=== PATIENT | female | born 1950 | race Caucasian/White ===

== ENCOUNTER 2023-10-01 23:03 | Inpatient (IN) | payer MEDICARE, OTHER, SELFPAY ==
[2023-10-01] VITALS (7 sets, daily range): BP systolic 117–166; BP diastolic 59–89; BMI 26.0; BMI 25.0
[2023-10-01 14:30] LABS: % Basophils 1.1 % (0-2); % Eosinophils 0.9 % (0-6); % Immature Granulocytes 1.9 % (0-0.5); % Lymphocytes 13.3 % (20.5-51.1); % Monocytes 9.1 % (1.7-9.3); % Neutrophils 73.7 % (42.2-75.2); Absolute Basophils 0.1 10^3/uL (0-0.2); Absolute Eosinophils 0.1 10^3/uL (0-0.7); Absolute Immature Granulocytes 0.1 10^3/uL (0-0.05); Absolute Monocytes 0.7 10^3/uL (0.1-0.6); Absolute Neutrophils 5.4 10^3/uL (1.4-6.5); Hematocrit 33.9 % (37.0-47.0); Hemoglobin 11.5 g/dL (12.0-16.0); Mean Corp Hgb Conc. 33.9 g/dL (33.0-37.0); Mean Corpuscular Hgb 34.1 pg (27.0-31.0); Mean Corpuscular Volume 100.6 fL (81.0-99.0); Mean Platelet Volume 8.6 fL (7.4-10.4); Nucleated Red Blood Cells % 0 %; Platelet Count 220 10^3/uL (130-400); Red Blood Cell Count 3.37 10^6/uL (4.20-5.40); White Blood Cell Count 7.4 10^3/uL (4.8-10.8)
[2023-10-01 14:46] LABS: ALT (SGPT) 22 U/L (0-35); AST (SGOT) 28 U/L (14-36); Albumin 3.7 g/dl (3.5-5.0); Alkaline Phosphatase 63 U/L (38-126); Blood Urea Nitrogen 9 mg/dl (7-17); Calcium 8.8 mg/dl (8.4-10.2); Carbon Dioxide 31 mmol/L (22-30); Chloride 90 mmol/L (98-107); Glucose 118 mg/dl (70-99); Potassium 4.2 mmol/L (3.5-5.1); Sodium 129 mmol/L (135-145); Total Protein 6.9 g/dl (6.3-8.2); eGFR > 60.00
--- NOTE | 2023-10-01 17:30 | ED.GENMED ---
History of Present Illness
General
Chief Complaint: Weakness
Time Seen by Provider: 10/01/23 16:44
Travel History
Have you had any contact with someone who has COVID-19?: No
Do you have any symptoms of coronavirus? Fever > 100 degrees, chills, cough, shortness of breath, sore throat, loss of taste or smell, muscle aches, or headache?: No
History of Present Illness
History of Present Illness:
73-year-old female history of hypertension presenting with productive cough for the past 1 week. 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 Patient states that her had similar symptoms. Patient
denies chest pain, shortness of breath, fever, chills, or lower extremity swelling. states that patient has been more confused over the past few days as she will sometimes be sitting in her wheelchair staring off at cabinets or referring to
dog that years ago. Patient denies any recent falls, head trauma, or use of blood thinners. Of note patient is wheelchair-bound secondary to previous left femur fracture.
Past History
Past History
ED Past Medical History: None
ED Past Surgical History: Orthopedic
Social History
Tobacco: Non-smoker
Alcohol: None
Phy Exam
Physical Exam
Physical Exam:
General: Alert, no acute distress
Head: NCAT, PERRLA, EOMI
Eyes: clear conjunctiva
Neck: supple
Cardiac: regular rate and rhythm, no murmur
Lungs: clear to auscultation bilaterally. No wheezes, rales, or rhonchi. Speaking full unlabored sentences. No respiratory distress.
Abdomen: soft, nondistended nontender. No rebound or guarding.
MSK: no lower extremity edema bilaterally. No deformity
Skin: warm, dry
Neuro: Alert and oriented x3. no focal deficits
Course
Orders/Labs/Results
Orders:
Orders
10/01/23 14:14
Electrocardiogram (*1) Urgent
Reason for Study: Fatigue / Weakness
EKG- Treatment ONCE
10/01/23 14:21
Complete Blood Count/With Diff Urgent
Comprehensive Metabolic Panel Urgent
10/01/23 17:29
CXR2 [CR Chest - 2 Views ] Urgent
Comment:
Reason For Exam: cough
10/01/23 17:30
EKG [Electrocardiogram (*1)] Urgent
Reason for Study: Hypertension, Benign
EKG- Treatment ONCE
10/01/23 18:29
CT Head W/o Iv Contrast Urgent
Comment:
Reason For Exam: headache, left sided tingling
10/01/23 18:30
Prochlorperazine [Compazine] 10 mg IV NOW STA
10/01/23 19:19
CT Chest Pe Study Urgent
Comment:
Reason For Exam: hypoxia, wheelchair bound, r/o pe
10/01/23 19:45
UA Reflex to Culture [Urinalysis Reflex To Culture] Urgent
Date Specimen was Collected: 10/01/23
Time Specimen was Collected: 19:44
Urine Microscopic Reflex Cult Urgent
10/01/23 21:35
Azithromycin 500 mg/250 ml [Zithromax Infusion] 500 mg in 250 ml IV NOW
CefTRIAXone [Rocephin] 1,000 mg IV NOW STA
Abnormal Lab Results
10/01/23 10/01/23
14:21 19:45
RBC 3.37 L 10^6/uL
(4.20-5.40)
Hgb 11.5 L g/dL
(12.0-16.0)
Hct 33.9 L %
(37.0-47.0)
MCV 100.6 H fL
(81.0-99.0)
MCH 34.1 H pg
(27.0-31.0)
Abs Immat Gran (auto) 0.1 H 10^3/uL
(0-0.05)
Absolute Lymphs (auto) 1.0 L 10^3/uL
(1.2-3.4)
Absolute Monos (auto) 0.7 H 10^3/uL
(0.1-0.6)
Immature Gran % 1.9 H %
(0-0.5)
Lymphocytes % 13.3 L %
(20.5-51.1)
Sodium 129 L mmol/L
(135-145)
Chloride 90 L mmol/L
(98-107)
Carbon Dioxide 31 H mmol/L
(22-30)
Creatinine 0.4 L mg/dL
(0.6-1.0)
Glucose 118 H mg/dl
(70-99)
Urine Ketones 2+ A
(Negative)
Urine Bilirubin 2+ A
(Negative)
Urine Urobilinogen 4+ A
(Neg - 1+)
Leukocyte Esterase Rfl Trace A
(Negative)
Urine Bacteria (Reflex) Few A
(Negative)
10/01/23 14:21
10/01/23 14:21
Vital Signs
Initial and Last Documented VS:
Initial Vital Signs
Temp Pulse Resp BP Pulse Ox
98.4 F 92 16 121/76 98
10/01/23 14:10 10/01/23 14:10 10/01/23 14:10 10/01/23 14:10 10/01/23 14:10
Last Documented Vital Signs
Temp Pulse Resp BP Pulse Ox
98.4 F 94 18 160/79 99
10/01/23 14:10 10/01/23 19:46 10/01/23 19:46 10/01/23 19:07 10/01/23 20:30
MDM/Problems Addressed
MDM/Problems Addressed:
Patient presents to the Emergency Department with cough
Number and Complexity of Problems Addressed at the Encounter
� Chronic conditions affecting care:
� Acute Exacerbation and/or Progression of Chronic Illness:
� Differential Diagnosis includes: Viral syndrome, pneumonia, UTI, electrolyte abnormality
Amount and/or Complexity of Data to be Reviewed and Analyzed
� I performed an independent evaluation of and my interpretation is:
EKG: EKG shows NSR at 74bpm with MS 150 QTc 450 no acute ischemic changes
CT: CTA shows opacity right side, no PE.
Xrays: CXR shows no acute consolidation or infiltrate.
Laboratory Studies:
Other:
� Review of other/old records reveals:
� Clinical information was obtained by an independent historian:
� Prescriptions/Medications Considered but not given:
� Further testing considered but not performed:
Risk of Complications and/or Morbidity or Mortality of Patient Management
� Social Determinants of health affecting care:
� Discussion with other providers (PCP, Hospitalists, Consultants, etc):
� Escalation of care including admission/observation vs risk of discharge considered: 73yoF hx hypertension, wheelchair-bound presenting with productive cough for the past 1 week. is also concern for altered mental status. Negative COVID at
home. Patient alert and oriented x 3 here in ER. Patient hypoxic to 84% on room air, improved with [address] head negative. Chest x-ray negative for acute infiltrate/consolidation. Given hypoxia and history of being wheelchair-bound,
ordered CTA chest rule out PE, further assess for pneumonia. CT reviewed, no acute PE but does show opacities concerning for pneumonia. Ordered ceftriaxone/azithromycin for community-acquired pneumonia. Discussed with hospitalist
*Critical Care Note
Total Time (30-74mins, 75-104mins- exclusive of procedures): Not Applicable
ED Attending Note
-
Portions of this chart may have been created with voice recognition software.� Occasional wrong word or��sound alike� substitutions may have occurred due to the inherent limitations of voice recognition software.
Discharge Plan
Departure
Patient Disposition: Admit
Date of Disposition: 10/01/23
Time of Disposition: 21:47
Admit to: Telemetry
Presentation/result/management discussed w/ accepting MD/DO: Hospitalist
Patient with high blood pressure during this ER visit?: Yes
Discharge Problem:
Community acquired pneumonia
Prescriptions:
No Action
ibuprofen 200 mg Tablet
400 mg PO Q6H PRN (Reason: mild pain)
Guaifenesin DM 30-600 mg Tablet Extended Release 12 Hr
2 tab PO Q12H PRN (Reason: cough/congestion)
Benefiber
2 tsp PO DAILY
Culturelle
1 cap PO DAILY
Referrals:
Vu Johnson MD [Family Provider] -
Interventions
Interventions:
*Risk Screen - Suicide Last Done: 10/01/23 16:13
*General Assessment Last Done: 10/01/23 16:13
*Neglect/Abuse Screening Last Done: 10/01/23 16:03
ED- Fall Risk Assessment Last Done: 10/01/23 16:13
*ED COVID-19 Vaccine History Last Done: 10/01/23 14:10
ED- Cardiac Assessment Last Done: 10/01/23 16:13
ED- Neurological Assessment Last Done: 10/01/23 16:13
ED- Pulmonary Assessment Last Done: 10/01/23 16:13
Discharge Date and Time
Print Language: KAZAKH
[2023-10-01] MEDS: COMPAZINE 10 MG IV (19:14)
[2023-10-01 19:57] LABS: Urine Albumin Trace (Neg - Trace); Urine Bilirubin 2+ (Negative); Urine Character Clear (Clear); Urine Color Yellow; Urine Glucose Negative (Negative); Urine Ketone 2+ (Negative); Urine Leukocyte Trace (Negative); Urine Nitrite Negative (Negative); Urine Occult Blood Negative (Negative); Urine Urobilinogen 4+ (Neg - 1+)
[2023-10-01 20:11] LABS: Urine Bacteria Few (Negative); Urine Mucus Many; Urine Red Blood Cell 0-2 /HPF (0-2); Urine White Cell 0-2 /HPF (0-5)
--- NOTE | 2023-10-01 21:42 | HPS.HSE ---
Addendum entered and electronically signed by Jovan Perry MD 10/01/23 22:45:
see my update note for addendum
Original Note:
Family Physician
-
Family Physician: Vu Johnson
Chief Complaint
-
cough
History of Present Illness
73 year old with PMH for HTN presented to us with productive cough with green sputum for one week. denied chest pain, sob. stated sore throat resolved. denied fever, chills, [place], dizzy or syncopal episode. denied abdominal pain, n,v,d.denied dysuria
or hematuria. patient was hallucinating and was confused at home.
patient was hypoxic on arrival. CT with pneumonia. received ceftriaxone and zithro in ER. admitting for further management.
Medical History
Past Medical History
Past Medical History: Reports Other
Additional Past Medical History:
htn
Past Surgical History: Reports Other
Additional Past Surgical History:
ORIF
-tib fib surgical repair
tubal ligation
appendectomy
b/l cataract surgery
Social History
Tobacco: Non-smoker
Alcohol: Daily (4 glasses of wine)
Drug: None
Personal:
Living: With Family
Family History
Family History: Not pertinent
Allergies / Home Medications
Allergies reflects when Allergies were last updated in [facility].
Home Medications with original date entered in [facility]
Allergy/Medication List:
Allergies
Allergy/AdvReac Type Severity Reaction Status Date / Time
No Known Allergies Allergy Verified 10/01/23 14:13
Home Medications
Benefiber 2 tsp PO DAILY 10/01/23
Culturelle 1 cap PO DAILY 10/01/23
dextromethorphan-guaifenesin 30 mg-600 mg tablet extended [id number] hr 2 tab PO Q12H PRN cough/congestion 10/01/23
ibuprofen 200 mg tablet 400 mg PO Q6H PRN mild pain 10/01/23
Review of Systems
-
Constitutional: Reports No Symptoms
EENT: Reports No Symptoms
Respiratory: Reports Cough
Cardiac: Reports No Symptoms
Abdomen/GI: Reports No Symptoms
: Reports No Symptoms
Musculoskeletal: Reports No Symptoms
Skin: Reports No Symptoms
Neurological: Reports No Symptoms
Endocrine: Reports No Symptoms
Hematologic/Lymphatic: Reports No Symptoms
Psych: Reports No Symptoms
Physical Exam
Vital Signs
Vital Signs
Temp Pulse Resp BP Pulse Ox
98.4 F 94 18 160/79 94
10/01/23 14:10 10/01/23 19:46 10/01/23 19:46 10/01/23 19:07 10/01/23 19:46
Physical Exam
General: Well Developed, Well Nourished and No Apparent Distress
HEENT: NormoCephalic, Moist mucous membranes and Atraumatic
Respiratory: Clear
Cardiac: S1/S2 and Regular Rhythm; No Murmur or Rub
GI: Soft, Non Tender, Non Distended and Normal Bowel Sounds; No Organomegaly
Rectal: Deferred by Provider
Musculoskeletal: No Clubbing, No Cyanosis and No Edema
Skin: No Rash
Neuro: AO x 3 and Nonfocal/grossly intact
Psych: Calm
Laboratory Results
-
10/01/23 14:21
10/01/23 14:21
Laboratory Results
Total Bilirubin 1.0 mg/dl (0.2-1.3) 10/01/23 14:21
AST 28 U/L (14-36) 10/01/23 14:21
ALT 22 U/L (0-35) 10/01/23 14:21
Alkaline Phosphatase 63 U/L (38-126) 10/01/23 14:21
Data Reviewed
-
Diagnostic Radiology: Report Reviewed by me
CT Scan: Report Reviewed by me
Lab Data: Labs Reviewed by me
Impression/Plan
-
#productive cough/acute hypoxic respiratory failure likely from pneumonia
-CT chest No evidence of pulmonary embolism.Scattered bilateral groundglass densities most in keeping with infectious/inflammatory etiologies.Right upper lobe solid subpleural nodules measuring up to 1.0 cm, favored on the basis of
infectious/inflammatory nodules although underlying neoplasm not excluded. Recommend follow-up noncontrast CT chest in 2-3 months.
-iv ceftriaxone and Zithromax continued
-chest x ray with Mild diffuse interstitial prominence may reflect pneumonitis and/or borderline interstitial edema. Cannot rule out component of underlying chronic interstitial lung disease.
-continue supplemental oxygen to keep sat>92
-wean as tolerated
-nebs prn for sob
#metabolic encephalopathy likely from acute hypoxia
-CT head negative
-at present mentation stable
-ctm
#hyponatremia likely hypovolemic
-na 129
-fluids continued
-obtain urine osm, serum osm, urine sodium
-BMP in am
#alcohol dependence
-4 glasses of wine daily
-alcohol protocol
-monitor MSAS score
#DVT prophylaxis
-Lovenox
#CODE status
-full code
[2023-10-01] MEDS: ROCEPHIN 1000 MG IV (22:17)
[2023-10-01] MEDS: ZITHROMAX INFUSION 250 IV (22:22)
[2023-10-01 22:38] LABS: Osmolality Serum 289 mOsm/kg (275-300)
--- NOTE | 2023-10-01 22:45 | W.PN.UPDATE ---
Update Note
Progress Note Update
I saw and examined the patient.
The GREEN BUILDING MATERIALS DESIGNER French's note was reviewed and I agree with the note.
Comment: 73 y/o F presenting to ER For productive cough with green sputum, SOB. She had a sore throat which has since resolved. No CP, no fever/chills. She is wheelchair bound due to previous L femur fracture. Family noted she was a bit confused
over past few days and staring off while sitting in wheelchair. 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
In ER, patient requiring 4L NC. CT showed bilateral GGOs - COVID pending. CAP Antibiotics started. CT head is negative and patient is back to baseline per .
Plan: continue O2 and wean as able. COVID neg. continue CAP treatment (Rocephin, Azithromycin). appears dry, give IVF and follow Na levels. Hyponatremia workup sent. add MSAS protocol due to drinking 4 glasses wine nightly.
Physical Exam
General: Well Developed, Well Nourished and No Apparent Distress
HEENT: NormoCephalic, Moist mucous membranes and Atraumatic
Respiratory: faint rhonchi
Cardiac: S1/S2 and Regular Rhythm; No Murmur or Rub
GI: Soft, Non Tender, Non Distended and Normal Bowel Sounds; No Organomegaly
Rectal: Deferred by Provider
Musculoskeletal: No Clubbing, No Cyanosis and No Edema
Skin: No Rash
Neuro: AO x 3 and Nonfocal/grossly intact
Psych: Calm
[2023-10-01 22:47] LABS: COVID-19 Antigen Negative (Negative)
[2023-10-01 23:12] LABS: Osmolality Urine 565 mOsm/kg (300-900)
[2023-10-01 23:17] LABS: Urine Sodium 19 mmol/L (30-90)
[2023-10-02] VITALS (8 sets, daily range): BP systolic 125–158; BP diastolic 56–78; PULSE 83
[2023-10-02 01:52] LABS: INR 1.12; PT 14.2 Sec (11.4-14.6)
[2023-10-02 01:53] LABS: APTT 29.9 Sec (23.4-35.0); GGTP 67 U/L (12-43); Magnesium 1.9 mg/dl (1.6-2.3); Phosphorus 3.3 mg/dl (2.5-4.5)
[2023-10-02 01:54] LABS: Urine Albumin Trace (Neg - Trace); Urine Bilirubin 1+ (Negative); Urine Character Slightly Cloudy (Clear); Urine Glucose Negative (Negative); Urine Ketone 2+ (Negative); Urine Leukocyte 2+ (Negative); Urine Nitrite Negative (Negative); Urine Occult Blood Negative (Negative); Urine Urobilinogen 4+ (Neg - 1+)
[2023-10-02 01:56] LABS: Urine Color Amber
[2023-10-02 02:01] LABS: Alcohol None Detected
[2023-10-02 02:03] LABS: Urine Bacteria Moderate (Negative); Urine Squamous Cell >30 /LPF (Few)
[2023-10-02 02:05] LABS: Amphetamines Negative (Negative); Barbiturates Negative (Negative); Benzodiazepines Negative (Negative); Buprenorphine Negative (Negative); Cocaine Negative (Negative); Marijuana Negative (Negative); Methadone Negative (Negative); Methamphetamines Negative (Negative); Opiates Negative (Negative); Phencyclidine Negative (Negative); Tricyclic Antidepressants Negative (Negative)
[2023-10-02] MEDS: NSS 1000 IV (02:09)
[2023-10-02 06:14] LABS: Hematocrit 33.3 % (37.0-47.0); Hemoglobin 11.2 g/dL (12.0-16.0); Mean Corp Hgb Conc. 33.6 g/dL (33.0-37.0); Mean Corpuscular Volume 101.2 fL (81.0-99.0); Mean Platelet Volume 8.6 fL (7.4-10.4); Platelet Count 203 10^3/uL (130-400); Red Blood Cell Count 3.29 10^6/uL (4.20-5.40); Red Cell Dist. Width 13.7 % (11.5-14.5)
[2023-10-02 06:35] LABS: Blood Urea Nitrogen 7 mg/dl (7-17); Calcium 8.7 mg/dl (8.4-10.2); Carbon Dioxide 31 mmol/L (22-30); Chloride 93 mmol/L (98-107); Estimated Creatinine Clearance 81 ml/min; Glucose 105 mg/dl (70-99); Potassium 3.9 mmol/L (3.5-5.1); Sodium 132 mmol/L (135-145); eGFR > 60.00
[2023-10-02 06:54] LABS: Procalcitonin 0.08 ng/ml (0.0-0.25)
[2023-10-02 07:24] LABS: Hepatitis C Antibody Negative (Negative)
[2023-10-02] MEDS: FOLVITE 1 MG PO (08:17)
[2023-10-02] MEDS: THIAMINE INJECTION 200 MG IV ×2 (08:17→20:26)
--- NOTE | 2023-10-02 09:59 | W.PN.HOSP.TC ---
Addendum entered and electronically signed by Peter Dejesus MD 10/02/23 13:37:
Addendum
Saw pt again with pulmonary doctor, pt remains lethargic and not waking up. Ordered blood gases and seemed to have high PCO2, will do Bipap, move to IMU
Will call
End
Original Note:
Today's Communication/Plan
-
.
Assessment / Plan
Assessment / Plan
Physical Exam
General: She is not in distress. Chronically ill looking.
HEENT: Normocephalic, atraumatic. Bilateral yellowing discharge on both eye lids
Respiratory: no coarse crackles heard
Cardiac: S1/S2 and Regular Rhythm; No Murmur or Rub
GI: Soft, Non Tender, Non Distended and Normal Bowel Sounds.
Rectal: No rectal bleeding
Musculoskeletal: No Clubbing, No Cyanosis and No Edema
Skin: No Rash
Neuro: AO to self and surroundings, followed simple commands.
Psych: Calm
# Change in mental status
She seems back to baseline, could be toxic encephalopathy due to acute illness whether cold like cough/ PNA or UTI
Will check pro-calcitonin. Check Pro-BNP
Check urine culture. No fevers. No leukocytosis.
She seems to have limited functional capacity. Hx of ETOH use but no signs of DT or confusion now. She followed commands. And good memory noted.
Will keep monitoring
# Possible PNA
Hx of cough with sick contact
Negative flu and cOVID
c/w empiric IV Abx for total [address] chest no PE but scattered bilateral ground-glass densities most in keeping with infectious/inflammatory etiologies.
# Hypoxia only/ Hx of smoking tobacco
Right upper lobe solid subpleural nodules measuring up to 1.0 cm, favored on the basis of infectious/inflammatory nodules although underlying neoplasm not excluded.
No SOB, no hemoptysis.
Appreciate pulmonary input
#Hyponatremia
Low normal serum Osmolality
Normal urine osmolality. Low urine sodium
c/w Regular diet and fluid restriction.
# Bilateral conjunctivitis. Will give ciprofloxacin eyedrops and warm wipes to both eyes
# History of alcohol intake. No signs of withdrawal. Continue empiric thiamine dose and monitor.
#DVT prophylaxis. Continue with subcu Lovenox
Total time spent to see the patient, examine the patient on the floor, review data and lab results, discuss treatment plan with patient and nursing staff around 55 minutes
Anticipated Discharge: > 48 hours
Subjective/Interval History
-
Date of Service: October 02, 2023
She feels better
she denies chest pain or sob, reports coming to hospital because ( I was imagining things)
No headache
Objective Data
-
Labs:
Laboratory Results
10/02/23 10/02/23
01:28 05:55
WBC 7.0
Hgb 11.2 L
Hct 33.3 L
Plt Count 203
PT 14.2
INR 1.12
APTT 29.9
Sodium 132 L
Potassium 3.9
Chloride 93 L
Carbon Dioxide 31 H
BUN 7
Creatinine 0.4 L
Glucose 105 H
Calcium 8.7
Vital Signs:
Vital Signs
Temp Pulse Resp BP Pulse Ox
97.9 F 82 17 125/66 97
10/02/23 07:00 10/02/23 07:00 10/02/23 07:00 10/02/23 07:00 10/02/23 07:00
I&O
10/01/23 10/02/23 10/03/23
06:59 06:59 06:59
Intake Total 480 / 480
Balance 480 / 480
[2023-10-02 10:54] LABS: NT-proBNP 1050 pg/ml
[2023-10-02 11:01] LABS: Procalcitonin 0.07 ng/ml (0.0-0.25)
--- NOTE | 2023-10-02 11:15 | CON.PUL ---
Consultation
Consultation Request
Date/Time Consultation Requested: 10/02/23
Date/Time Consultation Performed: 10/02/23
Performing Provider: Miguel Ángel
Reason for Consultation: SOB
Medical History
-
History of Present Illness:
73 year old with PMH for HTN, significant former smoker presented to ER with productive cough with green sputum x 1 week. Denies any associated chest pain, sob. Patient was reportedly hallucinating and was confused at home.
On arrival to ER, patient was hypoxemic 84% on room air. CT with scattered nodular opacities suggesting possible pneumonia. Started on ceftriaxone and azithro IV in ER.
Former smoker >50 pack year history. No PFTs for review, never saw pulmonary in past.
Sleeping on my arrival.
Past Medical History
Past Medical History: Other (see list below)
Social History
Tobacco: Smoker
Alcohol: Daily
Drug: None
Family History
Family History: Reviewed & Not Pertinent
Allergies / Home Medications
Allergies
Allergy/AdvReac Type Severity Reaction Status Date / Time
No Known Allergies Allergy Verified 10/01/23 14:13
Home Medications
�Medication �Instructions �Recorded �Confirmed �Last Taken �Type
Benefiber 2 tsp PO DAILY 10/01/23 10/01/23 10/01/23 History
Culturelle 1 cap PO DAILY 10/01/23 10/01/23 10/01/23 History
dextromethorphan-guaifenesin 30 2 tab PO Q12H PRN cough/congestion 10/01/23 10/01/23 10/01/23 History
mg-600 mg tablet extended
hr
ibuprofen 200 mg tablet 400 mg PO Q6H PRN mild pain 10/01/23 10/01/23 Unknown History
Review of Systems
-
History Source: Patient
All other systems: Negative unless noted
Vitals / Labs / Diagnostic Testing
Vital Signs
Temp Pulse Resp BP Pulse Ox
97.9 F 82 17 125/66 97
10/02/23 07:00 10/02/23 07:00 10/02/23 07:00 10/02/23 07:00 10/02/23 07:00
Lab Data
10/02/23 05:55
10/02/23 05:55
Laboratory Results
10/02/23
01:28
PT 14.2
INR 1.12
APTT 29.9
Microbiology
10/02/23 01:28 Urine Legionella Urinary Antigen - Final
Negative for Legionella pneumophila Serogroup 1 antigen.
A negative result does not rule out the possiblity of
Legionella infection due to other serogroups or species of
Legionella. Clinical correlation is recommended.
10/02/23 01:28 Urine Streptococcus pneumoniae Antigen (M - Final
Negative for Streptococcus pneumoniae antigen.
A negative result does not exclude infection with
Streptococcus pneumoniae. Clinical correlation is
recommended.
10/01/23 22:14 Nasal Swab Influenza Types A & B (MELISSA) - Final
Negative for Influenza A & B, NAAT
Negative results must be combined with clinical observations
and patient history.
Nucleic Acid Amplification test (NAAT)performed on the
[employer] platform.
Diagnostic Testing:
Physical Exam
-
HEENT: Normocephalic, Anicteric and Moist Mucous Membranes
Cardiovascular: S1/S2 and Regular Rhythm
Respiratory: Clear and Non-Labored Respirations
GI: Soft, Non Distended and Non Tender
Neurology: Awake, Alert, Oriented, AO x 3 and No Motor Deficits
Skin: Warm, Dry and Good Color
General: Comfortable and Other (NAD, sleeping heavily)
Assessment
-
73 year old with PMH for HTN, significant former smoker presented to ER with productive cough with green sputum x 1 week. Denies any associated chest pain, sob. Patient was reportedly hallucinating and was confused at home. On arrival to ER,
patient was hypoxemic 84% on room air. CT with scattered nodular opacities suggesting possible pneumonia. Started on ceftriaxone and azithro IV in ER.
Acute hypoxic respiratory failure, O2 amor 84%
Metabolic alkalosis, Rule out hypercarbia
AECOPD suspected
Abnormal CT wtih pulmonary nodules
Hyponatremia, mild
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
Left femur fracture S/P ORIF 2020
Spiral fracture of tib/fib s/p repair 07/2017
Tubal ligation
Appendicitis
B/l cataracts surgery
HLD
Impaired fasting blood sugar
Vitamin D deficiency
Chronic ETOH abuse, 4 glasses of wine daily
Former smoker, 2PPD started age 17, quit age 67 (50-100 pack year history)
Plan
Hypoxemia noted on arrival, O2 amor 84%
Eventual Home o2 eval
Prior history of lung disease is not known but she has extensive smoking history
Suspect patient has underlying AECOPD, will obtain bedside PFT
CXR/CT obtained and reviewed wtih nodular opacities, started on IV abx for CAP
She has risk for lung cancer given her smoking history
Quit at age 67 would still be within screening years
This will need to be followed as OP
Former smoker >50 pack year history.
No PFTs for review, never saw pulmonary in past.
Sleeping on my arrival.
Obtain baseline ABG
No prior ECHO for review
proBNP ~1000
May consider obtaining baseline study
Will need outpatient pulmonary evaluation in our office for PFTs and 6MWT
Reviewed with patient
Risk factors assessed for underlying sleep disordered breathing also noted, recommend outpatient PSG/sleep evaluation
Smoking history noted
Continued smoking cessation recommended
ETOH use noted
On MSAS
We will follow
Diagnostic Data
CT CHEST 10/01/23- 1. No evidence of pulmonary embolism.
2. Scattered bilateral groundglass densities most in keeping with infectious/inflammatory etiologies.
3. Right upper lobe solid subpleural nodules measuring up to 1.0 cm, favored on the basis of infectious/inflammatory nodules although underlying neoplasm not excluded. Recommend follow-up noncontrast CT chest in 2-3 months.
[2023-10-02] MEDS: CILOXAN 0.3% OPHTHALMIC SOLUTION 1 DROP OPHTH ×3 (12:18→22:37)
[2023-10-02 12:46] LABS: B.E. 6.3 mmol/L; O2 Saturation % 98.8 % (94-98); PCO2 57 mmHg (32-35); PO2 75 mmHg (83-108); pH 7.37 (7.35-7.45)
--- NOTE | 2023-10-02 13:09 | CM ---
Addendum entered by ANGELY Pratt 10/02/23 13:31:
Received consult for ETOH resources. Patient denied needing any.
Original Note:
Reviewed chart, met with patient to obtain information for assessment. Patient stated that she lives in a single home with ramp access to enter, no steps. Patient primarily is in a w/c but can use a walker or cane for short distances. She is on o2
in room but denies any at home.
Patient described herself as independent with her ADLs, personal care, dressing and bathing. 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 She described her spouse as supportive and he can also assist with museum educator, and he does
most of the driving.
Patient has had VN services through . She has been to [place]. She has been to a SNF in [place].
Patient has a prescription plan and uses [facility] on [facility] for all of his medications.
His PCP is, Vu Johnson.
Patient stated that she would like to return home when stable. Will watch for o2 needs.
Plan: Case management will continue to follow and assist with discharge planning. Will watch for VN and o2 needs.
[2023-10-02] MEDS: DUONEB 3 ML INH ×2 (16:07→20:33)
[2023-10-02] MEDS: LOVENOX 40 MG SC (17:28)
--- NOTE | 2023-10-02 18:02 | PTCARENOTE ---
Received from [facility]W placed on IMU monitors, SR BP 126/63 POx 96% on 4L NC. MSAS 0 currently but is very anxious. AAOx3. Told me they tried 3 masks upstairs for Bipap. She will try again. Call clark in reach.
[2023-10-02] MEDS: ZITHROMAX 500 MG PO (20:26)
[2023-10-02] MEDS: STERILE WATER FOR INJECTION 10 ML IV (22:36)
[2023-10-02] MEDS: ROCEPHIN 1000 MG IV (22:37)
[2023-10-03] VITALS (18 sets, daily range): BP systolic 117–166; BP diastolic 68–102; PULSE 2–95; O2SAT 93–95; BMI 24.7
--- NOTE | 2023-10-03 03:05 | DOWNTIME ---
There was a [employer] Client Procedures Tech Downtime on 10/02/2023 from 0100 to 10/03/2023 at 0300. Downtime documentation of patient's care, including medication administrations, has been reconciled in the electronic record per guidelines. Refer to the
patient's paper chart under the miscellaneous tab to see printed paper medication records and downtime forms.
[2023-10-03 03:57] LABS: Hematocrit 32.1 % (37.0-47.0); Hemoglobin 11.2 g/dL (12.0-16.0); Mean Corp Hgb Conc. 34.9 g/dL (33.0-37.0); Mean Corpuscular Hgb 33.9 pg (27.0-31.0); Mean Corpuscular Volume 97.3 fL (81.0-99.0); Mean Platelet Volume 8.3 fL (7.4-10.4); Platelet Count 215 10^3/uL (130-400)
[2023-10-03 04:38] LABS: Blood Urea Nitrogen 7 mg/dl (7-17); Carbon Dioxide 29 mmol/L (22-30); Chloride 94 mmol/L (98-107); Estimated Creatinine Clearance 81 ml/min; Glucose 93 mg/dl (70-99); Potassium 4.1 mmol/L (3.5-5.1); Sodium 135 mmol/L (135-145); eGFR > 60.00
--- NOTE | 2023-10-03 06:25 | W.PN.HOSP.TC ---
Today's Communication/Plan
-
.
Assessment / Plan
Assessment / Plan
Physical Exam
General: She is not in distress. Chronically ill looking.
HEENT: Normocephalic, atraumatic. Bilateral yellowing discharge on both eye lids
Respiratory: no coarse crackles heard
Cardiac: S1/S2 and Regular Rhythm; No Murmur or Rub
GI: Soft, Non Tender, Non Distended and Normal Bowel Sounds.
Rectal: No rectal bleeding
Musculoskeletal: No Clubbing, No Cyanosis and No Edema
Skin: No Rash
Neuro: AO to self and surroundings, followed simple commands.
Psych: Calm
# Change in mental status due to toxic encephalopathy
She seems back to baseline, could be toxic encephalopathy due to acute illness whether cold like cough/ PNA or UTI
Will check pro-calcitonin. Check Pro-BNP
Check urine culture. No fevers. No leukocytosis.
She seems to have limited functional capacity. Hx of ETOH use but no signs of DT or confusion now. She followed commands. And good memory noted.
Will keep monitoring
# Acute bronchitis with acute COPD exacerbation
Hx of cough with sick contact
Negative flu and COVID
Mucinex BID
c/w empiric IV Abx for total [address] chest no PE but scattered bilateral ground-glass densities most in keeping with infectious/inflammatory etiologies.
# Acute hypoxic respiratory failure,
Hx of smoking tobacco
Right upper lobe solid subpleural nodules measuring up to 1.0 cm, favored on the basis of infectious/inflammatory nodules although underlying neoplasm not excluded.
No SOB, no hemoptysis.
Wean off O2 today
Appreciate pulmonary input
# Metabolic alkalosis due to high CO2.
#Hyponatremia, resolved.
Low normal serum Osmolality
Normal urine osmolality. Low urine sodium
c/w Regular diet and fluid restriction.
# Bilateral conjunctivitis. c/w ciprofloxacin eyedrops and warm wipes to both eyes
# History of alcohol intake. No signs of withdrawal. Continue empiric thiamine dose and monitor.
#DVT prophylaxis. Continue with subcu Lovenox
Total time spent to see the patient, examine the patient on the floor, review data and lab results, discuss treatment plan with patient, and nursing staff around 57 minutes
Anticipated Discharge: 24 - 48 hours
Subjective/Interval History
-
Date of Service: October 03, 2023
No chest pain
No sob
Night team, she used bipap less than an hour. No events over night, alert and followed commands.
Objective Data
-
Labs:
Laboratory Results
10/03/23
03:43
WBC 8.0
Hgb 11.2 L
Hct 32.1 L
Plt Count 215
Sodium 135
Potassium 4.1
Chloride 94 L
Carbon Dioxide 29
BUN 7
Creatinine 0.4 L
Glucose 93
Calcium 9.0
Vital Signs:
Vital Signs
Temp Pulse Resp BP Pulse Ox
97.7 F 81 17 150/74 99
10/03/23 04:24 10/03/23 04:22 10/03/23 04:22 10/03/23 04:22 10/03/23 04:22
I&O
10/01/23 10/02/23 10/03/23
06:59 06:59 06:59
Intake Total 480 / 480
Balance 480 / 480
[2023-10-03] MEDS: DUONEB 3 ML INH ×2 (08:12→11:22)
[2023-10-03] MEDS: FOLVITE 1 MG PO (08:45)
[2023-10-03] MEDS: CILOXAN 0.3% OPHTHALMIC SOLUTION 1 DROP OPHTH ×4 (08:45→20:35)
[2023-10-03] MEDS: THIAMINE INJECTION 200 MG IV ×2 (08:45→20:35)
--- NOTE | 2023-10-03 08:53 | W.PN.PUL3 ---
Today's Communication / Plan
-
Reviewed results of PFT showing severe obstruction/COPD
Will add inhalers/prednisone taper/COPD education to continue at time of discharge
Continue BIPAP trials, will need outpatient sleep study and PAP set up
We discussed lung cancer screening and OP follow up
Home O2 eval
If doing well in next 24 hours, can begin arrangements for discharge
Assessment
-
73 year old with PMH for HTN, significant former smoker presented to ER with productive cough with green sputum x 1 week. Denies any associated chest pain, sob. Patient was reportedly hallucinating and was confused at home. On arrival to ER,
patient was hypoxemic 84% on room air. CT with scattered nodular opacities suggesting possible pneumonia. Started on ceftriaxone and azithro IV in ER.
Acute hypoxic respiratory failure, O2 amor 84%
Chronic hypercarbic respiratory failure
AECOPD, PFT with severe obstruction
Abnormal CT wtih pulmonary nodules
Hyponatremia, mild
Conditions present [employer]
Left femur fracture S/P ORIF 2020
Spiral fracture of tib/fib s/p repair 07/2017
Tubal ligation
Appendicitis
B/l cataracts surgery
HLD
Impaired fasting blood sugar
Vitamin D deficiency
Chronic ETOH abuse, 4 glasses of wine daily
Former smoker, 2PPD started age 17, quit age 67 (50-100 pack year history)
Plan
Hypoxemia noted on arrival, O2 amor 84%
Home o2 eval
Prior history of lung disease is not known but she has extensive smoking history
Suspect patient has underlying AECOPD
bedside PFT reviewed- severe obstruction, FEV1 45%
add PO prednisone taper, can continue at discharge
CXR/CT obtained and reviewed wtih nodular opacities, started on IV abx for CAP
She has risk for lung cancer given her smoking history
Quit at age 67 would still be within screening years
This will need to be followed as OP--reviewed with patient
Former smoker >50 pack year history.
No PFTs for review, never saw pulmonary in past.
baseline AB.37 - 57 -- CO2 retention noted, reviewed [facility] patient
BIPAP tonight trial again
We discussed outpatient FU for PSG and PAP arrangements
No prior ECHO for review
proBNP ~1000
May consider obtaining baseline study
Will need outpatient pulmonary evaluation in our office for PFTs and 6MWT
Reviewed with patient
Risk factors assessed for underlying sleep disordered breathing also noted, recommend outpatient PSG/sleep evaluation
Smoking history noted
Continued smoking cessation recommended
ETOH use noted
On MSAS
Discharge planning per team in next 24 hours if improving
Diagnostic Data
CT CHEST 10/01/23- 1. No evidence of pulmonary embolism.
2. Scattered bilateral groundglass densities most in keeping with infectious/inflammatory etiologies.
3. Right upper lobe solid subpleural nodules measuring up to 1.0 cm, favored on the basis of infectious/inflammatory nodules although underlying neoplasm not excluded. Recommend follow-up noncontrast CT chest in 2-3 months.
[place] 10/02/23: FEV1 1.09L 45%, FVC 1.57L 49%, ratio 69 (severe obstruction)
Subjective Data
-
Date of Service:
Date of Service: October 03, 2023
Chief Complaint: Pulmonary Follow Up
Subjective:
better today, more awake
could not tolerate bipap <2 hours use
Objective Data
Data Reviewed
Vital Signs / I&O / Oxygen:
Vital Signs
Temp Pulse Resp BP Pulse Ox
97.7 F 81 19 150/74 96
10/03/23 04:24 10/03/23 08:14 10/03/23 08:14 10/03/23 04:22 10/03/23 08:14
Intake and Output
10/02/23 10/03/23 10/04/23
06:59 06:59 06:59
Intake Total 480 / 480
Balance 480 / 480
SaO2 96
Nasal Cannula flow liters per 4
minute
Physical Exam
General: Comfortable and Other (NAD)
HEENT: Normocephalic, Anicteric and Moist Mucous Membranes
Cardiovascular: S1-S2 and Regular Rhythm
Respiratory: Crackles, Non-Labored Respirations and Other (overall diminished)
GI: Soft, Non Distended and Non Tender
Neurology: Awake, Alert, Oriented, AO x 3 and No Motor Deficits
Skin: Warm, Dry and Good Color
Labs/Micro/Reports
Lab Data
10/03/23 03:43
10/03/23 03:43
Laboratory Results
10/02/23
12:32
pH 7.37
pCO2 57 H
pO2 75 L
HCO3 33.0 H
O2 Delivery Level
Microbiology
10/02/23 14:22 Sputum Respiratory Culture - Preliminary
Usual Respiratory Martha
10/02/23 14:22 Sputum Gram Stain - Preliminary
10/02/23 01:28 Urine Legionella Urinary Antigen - Final
Negative for Legionella pneumophila Serogroup 1 antigen.
A negative result does not rule out the possiblity of
Legionella infection due to other serogroups or species of
Legionella. Clinical correlation is recommended.
10/02/23 01:28 Urine Streptococcus pneumoniae Antigen (M - Final
Negative for Streptococcus pneumoniae antigen.
A negative result does not exclude infection with
Streptococcus pneumoniae. Clinical correlation is
recommended.
10/01/23 22:14 Nasal Swab Influenza Types A & B (MELISSA) - Final
Negative for Influenza A & B, NAAT
Negative results must be combined with clinical observations
and patient history.
Nucleic Acid Amplification test (NAAT)performed on the
[employer] platform.
[2023-10-03] MEDS: DELTASONE 40 MG PO (13:11)
[2023-10-03] MEDS: SPIRIVA RESPIMAT 2.5 MCG INH (14:52)
--- NOTE | 2023-10-03 16:56 | CM ---
Addendum entered by Malika Braun RN 10/03/23 17:13:
Repeated issues with [facility] print attach- referral unable to be entered at this time
Plan referral to [facility].
Original Note:
Patient with Dx Change in mental status due to toxic encephalopathy, Acute bronchitis with acute COPD exacerbation, Acute hypoxic respiratory failure. O2 3.5L. PT & OT recommend SNF vs HH.
Met with patient and ; discussed PT/OT eval/recommendations - the patient wishes to return home at d/c and agrees. Patient agrees with [facility] for PT/OT- and chooses [facility].
Referral to [facility].
Plan home with [facility].
[2023-10-03] MEDS: LOVENOX 40 MG SC (18:12)
--- NOTE | 2023-10-03 18:45 | PTCARENOTE ---
MSAS 3 today, did not require med intervention except she is requesting her nicotine mints- gum ordered but pt unable to use d/t dentures. Remains on 3.5-4L NC, Rair 85% and while napping she drops to 87% on O2. Harsh PC- audible wheezing
intermittently. OOB x1 with walker to bsc and recliner chair few hrs today. Appetite fair. Discussed pulm recommendations.
[2023-10-03] MEDS: SYMBICORT 160/4.5 MCG INHALER 2 PUFF INH (19:59)
[2023-10-03] MEDS: STERILE WATER FOR INJECTION 10 ML IV (20:35)
[2023-10-03] MEDS: ZITHROMAX 500 MG PO (20:35)
[2023-10-03] MEDS: ROCEPHIN 1000 MG IV (20:36)
--- NOTE | 2023-10-03 20:40 | PTCARENOTE ---
Received pt from emperatriz GONSAL[facility]. Pt is AAOx3, MSAS Q4. NSR/sinus tach on the monitor. On 4L NC, bipap HS O2 sat 92%, lungs diminished/coarse. BSCx 1. Pt is laying comfortable in bed with call clark in reach.
[2023-10-04] VITALS (16 sets, daily range): BP systolic 104–159; BP diastolic 67–109; PULSE 2–103; O2SAT 93
[2023-10-04 04:47] LABS: Hemoglobin 10.9 g/dL (12.0-16.0); Mean Corp Hgb Conc. 34.1 g/dL (33.0-37.0); Mean Corpuscular Hgb 33.6 pg (27.0-31.0); Mean Corpuscular Volume 98.8 fL (81.0-99.0); Mean Platelet Volume 8.4 fL (7.4-10.4); Platelet Count 166 10^3/uL (130-400); Red Blood Cell Count 3.24 10^6/uL (4.20-5.40); Red Cell Dist. Width 13.5 % (11.5-14.5); White Blood Cell Count 8.5 10^3/uL (4.8-10.8)
[2023-10-04 05:22] LABS: Blood Urea Nitrogen 7 mg/dl (7-17); Carbon Dioxide 33 mmol/L (22-30); Chloride 94 mmol/L (98-107); Estimated Creatinine Clearance 81 ml/min; Glucose 101 mg/dl (70-99); Potassium 3.9 mmol/L (3.5-5.1); Sodium 136 mmol/L (135-145); eGFR > 60.00
--- NOTE | 2023-10-04 06:30 | W.PN.HOSP.TC ---
Today's Communication/Plan
-
.
Assessment / Plan
Assessment / Plan
Physical Exam
General: She is not in distress. Chronically ill looking.
HEENT: Normocephalic, atraumatic. Bilateral yellowing discharge on both eye lids
Respiratory: no coarse crackles heard
Cardiac: S1/S2 and Regular Rhythm; No Murmur or Rub
GI: Soft, Non Tender, Non Distended and Normal Bowel Sounds.
Rectal: No rectal bleeding
Musculoskeletal: No Clubbing, No Cyanosis and No Edema
Skin: No Rash
Neuro: AO to self and surroundings, followed simple commands.
Psych: Calm
# Change in mental status due to toxic encephalopathy
Significant improvement
She seems back to baseline, toxic encephalopathy due to acute illness and high PCO2
Low pro-calcitonin.
Elevated Pro-BNP, will check echo
Urine culture is pending
. No fevers. No leukocytosis.
# Acute bronchitis with acute COPD exacerbation
Hx of cough with sick contact
Negative flu and COVID
Mucinex BID
c/w empiric IV Abx for total [address] chest no PE but scattered bilateral ground-glass densities most in keeping with infectious/inflammatory etiologies.
Started on Prednisone and inhalation therapy for COPD
# Acute hypoxic respiratory failure,
Hx of smoking tobacco
Right upper lobe solid subpleural nodules measuring up to 1.0 cm, favored on the basis of infectious/inflammatory nodules although underlying neoplasm not excluded. She has risk for lung cancer given her smoking history, for OP follow up with
pulmonary .
No SOB, no hemoptysis.
Wean off O2 if possible
Appreciate pulmonary input
# Metabolic alkalosis due to high CO2.
#Hyponatremia, resolved.
Low normal serum Osmolality
Normal urine osmolality. Low urine sodium
c/w Regular diet and fluid restriction.
# Bilateral conjunctivitis. c/w ciprofloxacin eyedrops and warm wipes to both eyes
# History of alcohol intake. No signs of withdrawal. Continue empiric thiamine dose and monitor.
#DVT prophylaxis. Continue with subcu Lovenox
Total time spent to see the patient, examine the patient on the floor, review data and lab results, discuss treatment plan with patient, and nursing staff around 57 minutes
Anticipated Discharge: 24 - 48 hours
Subjective/Interval History
-
Date of Service: October 04, 2023
No chest pain
No sob
No fevers
Tolerated Bipap over night
Objective Data
-
Labs:
Laboratory Results
10/04/23
04:37
WBC 8.5
Hgb 10.9 L
Hct 32.0 L
Plt Count 166 D
Sodium 136
Potassium 3.9
Chloride 94 L
Carbon Dioxide 33 H
BUN 7
Creatinine 0.4 L
Glucose 101 H
Calcium 9.0
Vital Signs:
Vital Signs
Temp Pulse Resp BP Pulse Ox
98.0 F 89 14 131/107 96
10/04/23 03:12 10/04/23 06:01 10/04/23 05:52 10/04/23 06:00 10/04/23 05:52
I&O
10/02/23 10/03/23 10/04/23
06:59 06:59 06:59
Intake Total 480 / 480 1150 / 1150
Balance 480 / 480 1150 / 1150
[2023-10-04] MEDS: SYMBICORT 160/4.5 MCG INHALER 2 PUFF INH ×2 (07:26→20:37)
[2023-10-04] MEDS: SPIRIVA RESPIMAT 2.5 MCG 2 PUFF INH (07:26)
[2023-10-04] MEDS: CILOXAN 0.3% OPHTHALMIC SOLUTION 1 DROP OPHTH ×4 (08:25→20:57)
[2023-10-04] MEDS: DELTASONE 40 MG PO (08:26)
[2023-10-04] MEDS: FOLVITE 1 MG PO (08:26)
[2023-10-04] MEDS: THIAMINE INJECTION 200 MG IV ×2 (08:26→20:56)
--- NOTE | 2023-10-04 09:07 | W.PN.PUL3 ---
Today's Communication / Plan
-
Doing very well, tolerated BIPAP, feels less EDS--will arrange OP sleep study and set up
Prednisone taper to continue post discharge
Continue inhalers post discharge, education provided
Outpatient pulmonary FU arranged through our office
Home O2 eval to clarify O2 need
Assessment
-
73 year old with PMH for HTN, significant former smoker presented to ER with productive cough with green sputum x 1 week. Denies any associated chest pain, sob. Patient was reportedly hallucinating and was confused at home. On arrival to ER,
patient was hypoxemic 84% on room air. CT with scattered nodular opacities suggesting possible pneumonia. Started on ceftriaxone and azithro IV in ER.
Acute hypoxic respiratory failure, O2 amor 84%
Chronic hypercarbic respiratory failure
AECOPD, PFT with severe obstruction
Abnormal CT wtih pulmonary nodules
Hyponatremia, mild
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
Left femur fracture S/P ORIF 2020
Spiral fracture of tib/fib s/p repair 07/2017
Tubal ligation
Appendicitis
B/l cataracts surgery
HLD
Impaired fasting blood sugar
Vitamin D deficiency
Chronic ETOH abuse, 4 glasses of wine daily
Former smoker, 2PPD started age 17, quit age 67 (50-100 pack year history)
Plan
Hypoxemia noted on arrival, O2 amor 84%
Home o2 eval pending
Prior history of lung disease is not known but she has extensive smoking history
Suspect patient has underlying AECOPD
bedside PFT reviewed- severe obstruction, FEV1 45%--severe COPD confirmed
add PO prednisone taper, can continue at discharge
CXR/CT obtained and reviewed wtih nodular opacities, started on IV abx for CAP
She has risk for lung cancer given her smoking history
Quit at age 67 would still be within screening years
This will need to be followed as OP--reviewed with patient
Former smoker >50 pack year history.
No PFTs for review, never saw pulmonary in past.
baseline AB.37 - 57 -- CO2 retention noted, reviewed the [facility] patient
BIPAP tonight trial again
We discussed outpatient FU for PSG and PAP arrangements
No prior ECHO for review
proBNP ~1000
May consider obtaining baseline study
Will need outpatient pulmonary evaluation in our office for PFTs and 6MWT
Reviewed with patient
Risk factors assessed for underlying sleep disordered breathing also noted, +snoring/EDS
Recommend outpatient PSG/sleep evaluation, we will arrange
Will set up PAP therapy post results
Smoking history noted
Continued smoking cessation recommended
ETOH use noted
On MSAS
Discharge planning per team in next 24 hours if improving
Diagnostic Data
CT CHEST 10/01/23- 1. No evidence of pulmonary embolism.
2. Scattered bilateral groundglass densities most in keeping with infectious/inflammatory etiologies.
3. Right upper lobe solid subpleural nodules measuring up to 1.0 cm, favored on the basis of infectious/inflammatory nodules although underlying neoplasm not excluded. Recommend follow-up noncontrast CT chest in 2-3 months.
[place] 10/02/23: FEV1 1.09L 45%, FVC 1.57L 49%, ratio 69 (severe obstruction)
Subjective Data
-
Date of Service:
Date of Service: October 04, 2023
Chief Complaint: Pulmonary Follow Up
Subjective:
doing well today, no issues
did very well on bipap overnight, slept 6 hours, feels less EDS
remains on 4l nc
Objective Data
Data Reviewed
Vital Signs / I&O / Oxygen:
Vital Signs
Temp Pulse Resp BP Pulse Ox
97.5 F 69 16 131/107 97
10/04/23 07:15 10/04/23 07:28 10/04/23 07:28 10/04/23 06:00 10/04/23 07:28
Intake and Output
10/03/23 10/04/23 10/05/23
06:59 06:59 06:59
Intake Total 1150 / 1150
Balance 1150 / 1150
SaO2 97
Nasal Cannula flow liters per 4
minute
Physical Exam
General: Comfortable and Other (NAD)
HEENT: Normocephalic, Anicteric and Moist Mucous Membranes
Cardiovascular: S1-S2 and Regular Rhythm
Respiratory: Clear, Non-Labored Respirations and Other (overall diminished)
GI: Soft, Non Distended and Non Tender
Neurology: Awake, Alert, Oriented, AO x 3 and No Motor Deficits
Skin: Warm, Dry and Good Color
Labs/Micro/Reports
Lab Data
10/04/23 04:37
10/04/23 04:37
Microbiology
10/02/23 14:22 Sputum Respiratory Culture - Preliminary
Usual Respiratory Martha
10/02/23 14:22 Sputum Gram Stain - Preliminary
10/02/23 01:28 Urine Legionella Urinary Antigen - Final
Negative for Legionella pneumophila Serogroup 1 antigen.
A negative result does not rule out the possiblity of
Legionella infection due to other serogroups or species of
Legionella. Clinical correlation is recommended.
10/02/23 01:28 Urine Streptococcus pneumoniae Antigen (M - Final
Negative for Streptococcus pneumoniae antigen.
A negative result does not exclude infection with
Streptococcus pneumoniae. Clinical correlation is
recommended.
10/01/23 22:14 Nasal Swab Influenza Types A & B (MELISSA) - Final
Negative for Influenza A & B, NAAT
Negative results must be combined with clinical observations
and patient history.
Nucleic Acid Amplification test (NAAT)performed on the
[employer] platform.
[2023-10-04] MEDS: LASIX 40 MG IV (11:49)
[2023-10-04] MEDS: LOVENOX 40 MG SC (16:52)
--- NOTE | 2023-10-04 20:19 | PTCARENOTE ---
Received pt from emperatriz GONS[facility]. Pt is AAOx3, MSAS Q4. NSR on the monitor. On 2L NC O2 sat 90%, lungs diminished/coarse, bipap HS. BSCx1. Pt is laying comfortable in bed with call clark in reach.
[2023-10-04] MEDS: ROCEPHIN 1000 MG IV (20:57)
[2023-10-04] MEDS: STERILE WATER FOR INJECTION 10 ML IV (20:57)
[2023-10-04] MEDS: ZITHROMAX 500 MG PO (20:57)
[2023-10-05] VITALS (8 sets, daily range): BP systolic 115–157; BP diastolic 57–100; PULSE 2–62
[2023-10-05 05:43] LABS: Hematocrit 32.3 % (37.0-47.0); Hemoglobin 11.2 g/dL (12.0-16.0); Mean Corp Hgb Conc. 34.7 g/dL (33.0-37.0); Mean Corpuscular Hgb 33.9 pg (27.0-31.0); Mean Corpuscular Volume 97.9 fL (81.0-99.0); Mean Platelet Volume 8.5 fL (7.4-10.4); Platelet Count 176 10^3/uL (130-400); Red Cell Dist. Width 13.9 % (11.5-14.5); White Blood Cell Count 8.5 10^3/uL (4.8-10.8)
[2023-10-05 06:11] LABS: Blood Urea Nitrogen 8 mg/dl (7-17); Calcium 8.9 mg/dl (8.4-10.2); Carbon Dioxide 34 mmol/L (22-30); Chloride 93 mmol/L (98-107); Estimated Creatinine Clearance 81 ml/min; Glucose 88 mg/dl (70-99); Potassium 3.7 mmol/L (3.5-5.1); Sodium 136 mmol/L (135-145); eGFR > 60.00
--- NOTE | 2023-10-05 06:20 | W.PN.HOSP.TC ---
Addendum entered and electronically signed by Peter Dejesus MD 10/05/23 10:47:
Addendum
Patient is in need of oxygen at 2 liters/minute via nasal cannula continuously due to pulse oximetry of 88% on room air at rest. Oxygen will help to improve hypoxemia. Patient is mobile within the home. DuoNeb therapy has been tried and is
ineffective in treating hypoxemia related symptoms. Oxygen is needed to improve symptoms.
Original Note:
Today's Communication/Plan
-
dc
Assessment / Plan
Assessment / Plan
Physical Exam
General: She is not in distress. Chronically ill looking.
HEENT: Normocephalic, atraumatic. Bilateral yellowing discharge on both eye lids
Respiratory: no coarse crackles heard
Cardiac: S1/S2 and Regular Rhythm; No Murmur or Rub
GI: Soft, Non Tender, Non Distended and Normal Bowel Sounds.
Rectal: No rectal bleeding
Musculoskeletal: No Clubbing, No Cyanosis and No Edema
Skin: No Rash
Neuro: AO to self and surroundings, followed simple commands.
Psych: Calm
# Change in mental status due to toxic encephalopathy
Significant improvement
She seems back to baseline, toxic encephalopathy due to acute illness and high PCO2
Low pro-calcitonin.
Elevated Pro-BNP, will check echo
Urine culture is pending
. No fevers. No leukocytosis.
# Acute bronchitis with acute COPD exacerbation
Hx of cough with sick contact
Negative flu and COVID
Mucinex BID
s/p empiric IV Abx for total [address] chest no PE but scattered bilateral ground-glass densities most in keeping with infectious/inflammatory etiologies.
Started on Prednisone and inhalation therapy for COPD
# Acute hypoxic respiratory failure,
Hx of smoking tobacco
Right upper lobe solid subpleural nodules measuring up to 1.0 cm, favored on the basis of infectious/inflammatory nodules although underlying neoplasm not excluded. She has risk for lung cancer given her smoking history, for OP follow up with
pulmonary .
No SOB, no hemoptysis.
Wean off O2 if possible , will do home O2 evaluation.
Appreciate pulmonary input
# Metabolic alkalosis due to high CO2.
#Hyponatremia, resolved.
Low normal serum Osmolality
Normal urine osmolality. Low urine sodium
c/w Regular diet and fluid restriction.
# Bilateral conjunctivitis. c/w ciprofloxacin eyedrops and warm wipes to both eyes
# History of alcohol intake. No signs of withdrawal. Continue empiric thiamine dose and monitor.
#DVT prophylaxis. Continue with subcu Lovenox
Total discharge time spent to see the patient, examine the patient on the floor, review data and lab results, discuss discharge plan with patient, and nursing staff around 65 minutes
Anticipated Discharge: Today
Subjective/Interval History
-
Date of Service: October 05, 2023
She is feeling better this morning
Would like to go home
Objective Data
-
Labs:
Laboratory Results
10/05/23
05:15
WBC Pending
Hgb Pending
Hct Pending
Plt Count Pending
Sodium 136
Potassium 3.7
Chloride 93 L
Carbon Dioxide 34 H
BUN 8
Creatinine 0.4 L
Glucose 88
Calcium 8.9
Vital Signs:
Vital Signs
Temp Pulse Resp BP Pulse Ox
97.4 F 66 14 157/81 94
10/05/23 03:28 10/05/23 06:00 10/05/23 06:00 10/05/23 06:00 10/04/23 22:00
I&O
10/03/23 10/04/23 10/05/23
06:59 06:59 06:59
Intake Total 1150 / 1150 410 / 410
Output Total 1325 / 1325
Balance 1150 / 1150 -915 / -914
[2023-10-05] MEDS: CILOXAN 0.3% OPHTHALMIC SOLUTION 1 DROP OPHTH (07:27)
[2023-10-05] MEDS: FOLVITE 1 MG PO (07:27)
[2023-10-05] MEDS: DELTASONE 40 MG PO (07:27)
[2023-10-05] MEDS: SPIRIVA RESPIMAT 2.5 MCG 2 PUFF INH (07:34)
[2023-10-05] MEDS: SYMBICORT 160/4.5 MCG INHALER 2 PUFF INH (07:34)
--- NOTE | 2023-10-05 09:06 | W.PN.PUL3 ---
Today's Communication / Plan
-
Home O2 eval reviewed: does need 2L at home set up to use at rest and with exertion
We discussed outpatient pulmonary FU for arrangements on concentrator, portable O2, CPAP
She is ready to go home, is asking about home PT
Discharge planning discussed with care team
Assessment
-
73 year old with PMH for HTN, significant former smoker presented to ER with productive cough with green sputum x 1 week. Denies any associated chest pain, sob. Patient was reportedly hallucinating and was confused at home. On arrival to ER,
patient was hypoxemic 84% on room air. CT with scattered nodular opacities suggesting possible pneumonia. Started on ceftriaxone and azithro IV in ER.
Acute hypoxic respiratory failure, O2 amor 84%
Chronic hypercarbic respiratory failure
AECOPD, PFT with severe obstruction
Abnormal CT wtih pulmonary nodules
Hyponatremia, mild
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
Left femur fracture S/P ORIF 2020
Spiral fracture of tib/fib s/p repair 07/2017
Tubal ligation
Appendicitis
B/l cataracts surgery
HLD
Impaired fasting blood sugar
Vitamin D deficiency
Chronic ETOH abuse, 4 glasses of wine daily
Former smoker, 2PPD started age 17, quit age 67 (50-100 pack year history)
Plan
Hypoxemia noted on arrival, O2 amor 84%
Home o2 eval reviewed- needs 2L set up at home to use continuously, to be arranged
Prior history of lung disease is not known but she has extensive smoking history
Suspect patient has underlying AECOPD
bedside PFT reviewed- severe obstruction, FEV1 45%--severe COPD confirmed
add PO prednisone taper, can continue at discharge
CXR/CT obtained and reviewed wtih nodular opacities, started on IV abx for CAP
She has risk for lung cancer given her smoking history
Quit at age 67 would still be within screening years
This will need to be followed as OP--reviewed with patient
Former smoker >50 pack year history.
No PFTs for review, never saw pulmonary in past.
baseline AB.37 - 57 -- CO2 retention noted, reviewed [facility] patient
BIPAP tonight trial again
We discussed outpatient FU for PSG and PAP arrangements
No prior ECHO for review
proBNP ~1000
May consider obtaining baseline study
Will need outpatient pulmonary evaluation in our office for PFTs and 6MWT
Reviewed with patient
Risk factors assessed for underlying sleep disordered breathing also noted, +snoring/EDS
Recommend outpatient PSG/sleep evaluation, we will arrange
Will set up PAP therapy post results
Smoking history noted
Continued smoking cessation recommended
ETOH use noted
On MSAS
Discharge planning per team
Diagnostic Data
CT CHEST 10/01/23- 1. No evidence of pulmonary embolism.
2. Scattered bilateral groundglass densities most in keeping with infectious/inflammatory etiologies.
3. Right upper lobe solid subpleural nodules measuring up to 1.0 cm, favored on the basis of infectious/inflammatory nodules although underlying neoplasm not excluded. Recommend follow-up noncontrast CT chest in 2-3 months.
[facility] 10/02/23: FEV1 1.09L 45%, FVC 1.57L 49%, ratio 69 (severe obstruction)
Subjective Data
-
Date of Service:
Date of Service: October 05, 2023
Chief Complaint: Pulmonary Follow Up
Subjective:
doing well, she is ready to go home
at bedside, we reviewed plan of care
Objective Data
Data Reviewed
Vital Signs / I&O / Oxygen:
Vital Signs
Temp Pulse Resp BP Pulse Ox
97.4 F 76 16 157/81 96
10/05/23 03:28 10/05/23 07:35 10/05/23 07:35 10/05/23 06:00 10/05/23 07:35
Intake and Output
05/16/24 05/17/24 05/18/24
06:59 06:59 06:59
Intake Total 1150 / 1150 410 / 410
Output Total 1325 / 1325
Balance 1150 / 1150 -915 / -915
SaO2 96
Nasal Cannula flow liters per 2.5
minute
Physical Exam
General: Comfortable and Other (NAD)
HEENT: Normocephalic, Anicteric and Moist Mucous Membranes
Cardiovascular: S1-S2 and Regular Rhythm
Respiratory: Clear, Non-Labored Respirations and Other (overall diminished)
GI: Soft, Non Distended and Non Tender
Neurology: Awake, Alert, Oriented, AO x 3 and No Motor Deficits
Skin: Warm, Dry and Good Color
Labs/Micro/Reports
Lab Data
10/05/23 05:15
10/05/23 05:15
Microbiology
10/04/23 12:44 Urine Urine Culture - Preliminary
10/02/23 01:28 Urine Urine Culture - Final
10/02/23 14:22 Sputum Respiratory Culture - Final
Usual Respiratory Martha
10/02/23 14:22 Sputum Gram Stain - Final
10/02/23 01:28 Urine Legionella Urinary Antigen - Final
Negative for Legionella pneumophila Serogroup 1 antigen.
A negative result does not rule out the possiblity of
Legionella infection due to other serogroups or species of
Legionella. Clinical correlation is recommended.
10/02/23 01:28 Urine Streptococcus pneumoniae Antigen (M - Final
Negative for Streptococcus pneumoniae antigen.
A negative result does not exclude infection with
Streptococcus pneumoniae. Clinical correlation is
recommended.
[2023-10-05] MEDS: PREVNAR 20 0.5 ML IM (10:14)
--- NOTE | 2023-10-05 10:54 | CM ---
Addendum entered by Malika Braun RN 10/05/23 15:22:
Met with patient who says she feels ready for d/c to home today. IMM completed. Her portable O2 tank was delivered to her hospital room. Her went home to feed their dogs but will be back to take her home. She was reminded that [facility]
is in place for her.
Plan home today with home O2 through [employer], with Aby MCDONOUGH.
Original Note:
Patient with Dx Change in mental status due to toxic encephalopathy, Acute bronchitis with acute COPD exacerbation, Acute hypoxic respiratory failure. O2 2L. PT & OT recommend SNF vs HH. Home O2 Assessment 10/04/23.
Message with Dr Dejesus confirming home O2 2L continuous.
Spoke with patient's Armin; the patient was unavailable at present however was in room saying patient feels ready for d/c home today. Armin agrees with home O2 through [employer] and is available today to receive delivery. He is
aware [facility] is set up. will provide transport home. CM will meet with patient later today prior to d/c.
Spoke with Kelly Carrasco; she is able to accept the order for home O2 concentrator/portables and will deliver the portable to the hospital by 3pm today. Referral sent to her e-fax.
Phone call to Aby Gilmore (fax [phone]); left message notifying her of d/c home today for SN/PT/OT.
Plan home today with home O2 through [employer], with Aby MCDONOUGH.
--- NOTE | 2023-10-05 11:56 | W.DCSUMMARY ---
Discharge Summary
Discharge Data
Date of Admission: 10/01/23
Date of Discharge: 10/05/23
-
Pending Results: No
Hospital Course
73 years old female admitted with worsening shortness of breath, lethargy. Patient was diagnosed with toxic encephalopathy secondary to hypercarbia. Patient was found to have acute bronchitis with underlying acute chronic obstructive pulmonary
disease exacerbation. Patient had recent sick contact. Negative COVID and influenza test. Patient was evaluated by pulmonary doctor. She was started on empiric intravenous antibiotics and intravenous steroid. Scan of the chest did not show
pulmonary embolism but showed scattered bilateral ground-glass densities. Patient was started on inhalation therapy. She had low procalcitonin. She had elevated proBNP. Echocardiogram showed normal left ventricular ejection fraction. Patient
was placed on BiPAP therapy. Her mentation improved significantly. Urine culture did not show any growth. She did not have fever or leukocytosis. She did not have hemoptysis. Echocardiogram showed normal left ventricular ejection fraction 60 to
65%, normal diastolic function, normal right ventricular size and function, mild tricuspid regurgitation with estimated pulmonary artery pressure of 38 mmHg. Scan of the chest showed soft pleural nodule. Pulmonary doctor recommended outpatient
follow-up. Patient was also noticed to have bilateral conjunctivitis with yellowish discharge. She was given ophthalmic antibiotic eyedrop while in the hospital and responded well. No blurred vision or pain. She was evaluated for home oxygen and
she was qualified for oxygen therapy. Patient remained hemodynamically stable and was discharged in a stable condition.
Discharge Plan
-
Patient Disposition: Home with Home Care
Discharge Diagnosis/Procedures: Acute bronchitis with acute chronic obstructive pulmonary disease exacerbation finished course of oral prednisone, antibiotic: At home. You are given inhalation therapy.
History of smoking
Acute on chronic hypercapnic and hypoxic respiratory failure: You will be on oxygen. You will need to do outpatient sleep study due to high level of CO2, rule out obstructive sleep apnea.
Pulmonary nodules :you will need outpatient follow-up with pulmonary doctor
Hyponatremia
Gait dysfunction
Bilateral conjunctivitis, treated
Diet: Regular
Referrals:
Lauryn Del Rosario, DO [Active] - (2-3 weeks, PFTs/6MWT)
Vu Johnson MD [Family Provider] - in one to two weeks
Prescriptions:
New
prednisone 20 mg Tablet
40 mg PO DAILY 3 Days Qty: 6 0RF
albuterol sulfate 90 mcg/actuation Hfa Aerosol Inhaler
2 puff inhalation R Q4HPRN PRN (Reason: SOB/wheezing) Qty: 1 0RF
budesonide-formoterol 160-4.5 mcg/actuation HFA aerosol inhaler
2 puff inhalation BID Qty: 10.2 0RF
Spiriva Respimat 2.5 mcg/actuation Mist
2 puff inhalation R DAILY Qty: 4 0RF
azithromycin 250 mg Tablet
500 mg PO HS Qty: 2 0RF
cefdinir 300 mg capsule
300 mg PO BID Qty: 6 0RF
Continued
ibuprofen 200 mg Tablet
400 mg PO Q6H PRN (Reason: mild pain)
Guaifenesin DM 30-600 mg Tablet Extended Release 12 Hr
2 tab PO Q12H PRN (Reason: cough/congestion)
Benefiber
2 tsp PO DAILY
Culturelle
1 cap PO DAILY
Discharge Orders:
Discharge Patient (As Directed); Ordered 10/05/23
Ordered By: Peter Dejesus
Discharge Date and Time
Print Language: MONTSERRATIAN
== END 2023-10-05 14:08 | disposition home health service (06) | DRG 193 ==
LOC: IMU 23:03
PROVIDERS: Emergency Medicine; Registered Nurse; ADMITTING PHYSICIAN Internal Medicine; ATTENDING PHYSICIAN Internal Medicine; CONSULT PHYSICIAN Internal Medicine; EMERGENCY PHYSICIAN Emergency Medicine; FAMILY PHYSICIAN Internal Medicine Geriatric Medicine
DX: J18.9 Pneumonia, unspecified organism (principal); G92.8 Other toxic encephalopathy; J96.21 Acute and chronic respiratory failure with hypoxia; J96.22 Acute and chronic respiratory failure with hypercapnia; J44.0 Chronic obstructive pulmonary disease with (acute) lower respiratory infection; J44.1 Chronic obstructive pulmonary disease with (acute) exacerbation; E87.1 Hypo-osmolality and hyponatremia; J20.9 Acute bronchitis, unspecified; H10.9 Unspecified conjunctivitis; R26.9 Unspecified abnormalities of gait and mobility; F17.200 Nicotine dependence, unspecified, uncomplicated; F10.20 Alcohol dependence, uncomplicated
CPT/HCPCS: 36600; 70450; 71046; 71275; 80048; 80053; 80306; 81003; 81015; 82010; 82077; 82805; 82977; 83735; 83880; 83930; 83935; 84100; 84145; 84300; 85025; 85027; 85610; 85730; 86803; 87070; 87086; 87205; 87449; 87502; 87811; 87899; 90677; 93005; 93306; 94010; 94640; 94660; 96374; 97116; 97162; 97166; 99285; G0009; Q9967

== ENCOUNTER → 2023-10-11 12:13 | Outpatient (REF) | payer MEDICARE, OTHER, SELFPAY | LOC: HWRAD 12:13 | PROVIDERS: ATTENDING PHYSICIAN Nurse Practitioner Family | DX: M79.672 Pain in left foot (principal) | CPT/HCPCS: 73630 ==

== ENCOUNTER → 2023-10-19 | Outpatient (REF) | payer MEDICARE, OTHER, SELFPAY | LOC: DHSLP | PROVIDERS: ATTENDING PHYSICIAN Internal Medicine; FAMILY PHYSICIAN Internal Medicine Geriatric Medicine | DX: G47.33 Obstructive sleep apnea (adult) (pediatric) (principal) | CPT/HCPCS: 95810 ==

== ENCOUNTER → 2023-11-27 15:39 | Outpatient (REF) | payer MEDICARE, OTHER, SELFPAY | LOC: HWRAD 15:39 | PROVIDERS: ATTENDING PHYSICIAN Nurse Practitioner Adult Health; FAMILY PHYSICIAN Internal Medicine Geriatric Medicine | DX: R91.8 Other nonspecific abnormal finding of lung field (principal) | CPT/HCPCS: 71250 ==